=== PATIENT | male | born 1970 | race Caucasian/White ===

== ENCOUNTER 2021-05-09 22:38 | Observation (INO) ==
[2021-05-09] MEDS ORDERED: Ondansetron 4 MG/2 ML VIAL IVP ONE (22:51)
[2021-05-09] MEDS ORDERED: 0.9 % Sodium Chloride 1,000 ML IVC ONE ×2 (22:51→23:47)
[2021-05-09] MEDS ORDERED: Ketorolac 30 MG/ML VIAL IVP ONE (22:51)
[2021-05-09] MEDS ORDERED: Isovue-370 500 ML BOTTLE IVP ONE (22:52)
[2021-05-09 23:05] LABS: Basophils % 0.7 %; Eosinophils # 0.2 K/mcL (0.0-0.6); Eosinophils % 3.7 %; Hematocrit 43.3 % (37.5-50.1); Hemoglobin 15.3 g/dL (12.9-16.9); Immature Granulocytes % 0.5 % (0-4); Lymphocytes # 0.6 K/mcL (0.6-4.6); Lymphocytes % 10.9 %; Mean Corpuscular HGB Conc 35.3 g/dL (31.6-35.5); Mean Corpuscular Hemoglobin 33.2 pg (28.0-33.3); Mean Corpuscular Volume 93.9 fL (83.0-100.0); Mean Platelet Volume 9.1 fL (9.4-12.4); Monocytes # 0.4 K/mcL (0.0-1.3); Monocytes % 6.3 %; Neutrophils # 4.4 K/mcL (1.6-8.9); Platelet Count 149 K/mcL (140-400); Red Blood Count 4.61 M/mcL (4.19-5.50); Red Cell Distribution Width 12.4 % (11.5-14.5); Segmented Neutrophils % 77.9 %; White Blood Count 5.7 K/mcL (4.3-11.1)
[2021-05-09 23:26] LABS: Alanine Aminotransferase 155 Units/L (7-52); Albumin 4.6 g/dL (3.5-5.7); Albumin/Globulin Ratio 1.7 (1.1-2.2); Alkaline Phosphatase 346 Units/L (34-104); Amylase 27 Units/L (29-103); Aspartate Amino Transferase 207 Units/L (13-39); BUN/Creatinine Ratio 12 (6-26); Bilirubin,Direct 0.4 mg/dL (0.0-0.2); Bilirubin,Indirect 0.9 mg/dL (0.0-1.0); Bilirubin,Total 1.3 mg/dL (0.3-1.0); Blood Urea Nitrogen 12 mg/dL (6-20); Calcium 9.7 mg/dL (8.6-10.3); Carbon Dioxide 22 mEq/L (23-29); Chloride 85 mEq/L (98-107); Globulin 2.7 g/dL (2.4-3.5); Glucose 264 mg/dL (70-105); Lipase 5 Units/L (11-82); Osmolality,Calculated 283 (280-300); Potassium 5.2 mEq/L (3.5-5.1); Sodium 132 mEq/L (136-145); Total Protein 7.3 g/dL (6.4-8.9); eGFR For African Americans > 60 (> 60); eGFR For Non-African Americans > 60 (> 60)
[2021-05-09 23:50] LABS: Bilirubin,Urine Negative (Negative); Blood,Urine Negative (Negative); Clarity,Urine Clear (Clear); Color,Urine Yellow (Yellow); Glucose,Urine (UA) 500 mg/dL (Normal); Ketones,Urine >=160 mg/dL (Negative); Leukocyte Esterase,Urine Negative (Negative); Nitrite,Urine Negative (Negative); PH,Urine 5.5 pH Units (5.0-8.0); Protein,Urine 30 mg/dL (Neg-Trace); Specific Gravity,Urine 1.025 (1.010-1.025); Urobilinogen,Urine Normal (Normal)
[2021-05-09 23:58] LABS: RBC,Urine 0-3 per hpf (0-3)
[2021-05-09 23:59] LABS: Mucus,Urine Few per lpf (None-Few); Squamous Epithelial Cell,Urine Few per hpf (None-Few); WBC,Urine 0-3 per hpf (0-3)
[2021-05-10] MEDS ORDERED: *HR* Dextrose 50 % in Water (Vial) 50 ML VIAL IVP ONE (00:29)
[2021-05-10] MEDS ORDERED: Insulin Human Regular 10 UNIT in 0.9 % Sodium Chloride 10 ML IV ONE (00:29)
[2021-05-10] MEDS ORDERED: Calcium Gluconate 1gm/50mL 1 GM/50 ML BAG IVPB PRN (00:29)
[2021-05-10] MEDS ORDERED: *HR* HYDROmorphone (PF) 1 MG/ML SYRINGE IVP ONE (00:32)
[2021-05-10] MEDS ORDERED: *HR* FentaNYL (PF) 100 MCG/2 ML VIAL IVP ONE (02:14)
[2021-05-10] MEDS ORDERED: Ondansetron 4 MG/2 ML VIAL IVP ONE (04:24)
[2021-05-10] MEDS ORDERED: Naloxone 0.4 MG/ML INJ IVP PRN ×4 (05:13→06:04)
[2021-05-10] MEDS ORDERED: 0.9 % Sodium Chloride 1,000 ML IVC SCH (05:15)
[2021-05-10] MEDS ORDERED: *HR* Dextrose 50 % in Water (Vial) 50 ML VIAL IVP PRN (06:04)
[2021-05-10] MEDS ORDERED: Dextrose Gel 15 GM/37.5 ML TUBE PO PRN ×2 (06:04)
[2021-05-10] MEDS ORDERED: D5% in Water 1,000 ML IVC PRN (06:04)
[2021-05-10] MEDS: 0.9 % Sodium Chloride 1,000 ML IVC SCH ×3 (06:41→21:52)
[2021-05-10 07:28] LABS: HDL Cholesterol 172 mg/dL (40-59); LDL Cholesterol,Direct 60 mg/dL (75-193); Triglycerides 84 mg/dL (< 150)
[2021-05-10] MEDS ORDERED: Insulin LISPRO 300 UNITS/3 ML VIAL SUBQ SCH (07:30)
[2021-05-10 08:53] LABS: Basophils % 0.3 %; Eosinophils % 0.6 %; Hemoglobin 14.3 g/dL (12.9-16.9); Immature Granulocytes % 0.3 % (0-4); Lymphocytes # 0.9 K/mcL (0.6-4.6); Lymphocytes % 26.8 %; Mean Corpuscular HGB Conc 34.9 g/dL (31.6-35.5); Mean Corpuscular Hemoglobin 33.1 pg (28.0-33.3); Mean Corpuscular Volume 94.9 fL (83.0-100.0); Mean Platelet Volume 8.7 fL (9.4-12.4); Monocytes # 0.4 K/mcL (0.0-1.3); Monocytes % 10.7 %; Platelet Count 119 K/mcL (140-400); Red Blood Count 4.32 M/mcL (4.19-5.50); Red Cell Distribution Width 12.6 % (11.5-14.5); Segmented Neutrophils % 61.3 %; White Blood Count 3.3 K/mcL (4.3-11.1)
[2021-05-10] MEDS: Folic Acid 1 MG TABLET PO SCH ×3 (09:44→21:06)
[2021-05-10] MEDS: Insulin LISPRO 300 UNITS/3 ML VIAL SUBQ SCH ×3 (10:24→21:06)
[2021-05-10 10:45] LABS: Alanine Aminotransferase 122 Units/L (7-52); Albumin 4.1 g/dL (3.5-5.7); Albumin/Globulin Ratio 1.7 (1.1-2.2); Alkaline Phosphatase 292 Units/L (34-104); Aspartate Amino Transferase 135 Units/L (13-39); BUN/Creatinine Ratio 13 (6-26); Bilirubin,Total 1.5 mg/dL (0.3-1.0); Blood Urea Nitrogen 12 mg/dL (6-20); Calcium 9.1 mg/dL (8.6-10.3); Carbon Dioxide 24 mEq/L (23-29); Chloride 91 mEq/L (98-107); Chol/HDL Ratio 1.8 (0-4.9); Cholesterol 334 mg/dL (< 200); Globulin 2.4 g/dL (2.4-3.5); Glucose 233 mg/dL (70-105); HDL Cholesterol 181 mg/dL (40-59); LDL Cholesterol,Calculated 138 mg/dL (< 100); Osmolality,Calculated 287 (280-300); Potassium 4.2 mEq/L (3.5-5.1); Sodium 135 mEq/L (136-145); Total Protein 6.5 g/dL (6.4-8.9); Triglycerides 77 mg/dL (< 150); eGFR For African Americans > 60 (> 60); eGFR For Non-African Americans > 60 (> 60)
[2021-05-10 11:39] LABS: Estimated Average Glucose 255 mg/dl; Hemoglobin A1C 10.5 %
[2021-05-10] MEDS: Ondansetron 4 MG/2 ML VIAL IVP PRN ×2 (12:24→18:38)
[2021-05-10] MEDS ORDERED: Metoclopramide 10 MG/2 ML VIAL IVP PRN (15:36)
[2021-05-11] MEDS: 0.9 % Sodium Chloride 1,000 ML IVC SCH ×2 (01:03→09:01)
[2021-05-11] MEDS: Ondansetron 4 MG/2 ML VIAL IVP PRN (02:32)
[2021-05-11 02:40] VITALS: O2SAT 97
[2021-05-11] MEDS: Insulin LISPRO 300 UNITS/3 ML VIAL SUBQ SCH ×2 (04:38→08:36)
[2021-05-11 07:17] VITALS: BP 101/71; PULSE 63; RESP 18; TEMP 98.1
[2021-05-11] MEDS: Folic Acid 1 MG TABLET PO SCH (08:33)
== END 2021-05-11 11:15 | disposition home or self-care (01) ==
LOC: INPPIK 22:38 → EMEROOPIK 22:38 → INPPIK 05-10 06:02
PROVIDERS: ADMIT Family Medicine; ATTEND Family Medicine